=== PATIENT | male | born 2000 | race Caucasian/White ===

== ENCOUNTER 2025-06-28 21:54 | Emergency (ER) | payer MEDICAID, OTHER ==
[~2025-06-28] VITALS: Ht 188 cm; Wt 91.0 kg
[2025-06-28 22:05] VITALS: BP 118/63; O2SAT 97
[2025-06-29] MEDS: LIDOCAINE 5% PATCH TOP SCH (00:39)
[2025-06-29] MEDS: KETOROLAC 15MG/ML VIAL IM ONE (00:39)
[2025-06-29 00:50] VITALS: PULSE 62; RESP 18; TEMP 36.5; O2SAT 96
[2025-06-29] MEDS ORDERED: LIDO-53 TP (00:58)
[2025-06-29] MEDS ORDERED: NAPR-1176 MT (00:58)
== END 2025-06-29 01:21 ==
LOC: ER 21:54
DX: R07.81 Pleurodynia (principal); Z79.1 Long term (current) use of non-steroidal anti-inflammatories (NSAID)
CPT/HCPCS: 99283; 71100; 96372; J1885